=== PATIENT | female | born 1950 | race Caucasian/White ===

== ENCOUNTER → 2017-12-16 | Outpatient (CLI) | payer MEDICARE | LOC: GMAH 11:20 | PROVIDERS: ATTEND Family Medicine | DX: I10 Essential (primary) hypertension (principal); E11.9 Type 2 diabetes mellitus without complications; E78.2 Mixed hyperlipidemia ==

== ENCOUNTER → 2020-01-03 | Outpatient (CLI) | payer MEDICARE | LOC: GMA MATASK 12:21 | PROVIDERS: ATTEND Family Medicine | DX: I10 Essential (primary) hypertension (principal); E11.9 Type 2 diabetes mellitus without complications; M10.9 Gout, unspecified; E78.2 Mixed hyperlipidemia ==

== ENCOUNTER 2020-02-19 09:11 | Emergency (ER) | payer MEDICARE ==
--- NOTE | 2020-02-19 09:23 | ED.PDOC ---
History of Present Illness - General Time Seen by Provider: 02/19/20 09:21 Source: patient - History of Present Illness Initial Comments: 70 yo female with PMH of HTN, vertigo who presents with cc of intermittent chills and headache. Reports onset of illness 2 days ago with gradual worsening. She has not yet been seen for these issues. Reports chills are coming and going intermittently throughout the day, lasting for several minutes. Reports headache is located to the front of the head, constant, dull, 5/10 severity, took Tylenol 650 mg by mouth this morning with little relief. No reported exacerbating factors. She does report also symptoms of nasal congestion and rhinorrhea, intermittent productive cough, scratchy throat, mild epigastric discomfort, nausea without emesis, and one episode of watery diarrhea 2 days ago but none since then. Reports she has been drinking fluids well but has not had much appetite for solid foods. No known recent sick contacts or COVID contacts. No recent travel. Denies any chest pain, dyspnea, urinary symptoms, leg swelling. Her PCP is Dr. Lilly. Allergies/Adverse Reactions: Allergies NO KNOWN ALLERGY Allergy (Verified 02/19/20 09:31) Home Medications: Ambulatory Orders Allopurinol [Zyloprim] 100 mg PO DAILY 02/19/20 Metformin HCl [Metformin Hydrochloride E] 500 mg PO DAILY 02/19/20 Metoprolol Tartrate 25 mg PO DAILY 02/19/20 Olmesartan Medoxomil 40 mg PO DAILY 02/19/20 Ondansetron HCl [Zofran] 8 mg PO Q8H PRN 5 Days #10 tab 02/19/20 Simvastatin 20 mg PO DAILY 02/19/20 Review of Systems - Review of Systems Review of Systems: 02/19/20 09:39 As per HPI All other Systems: Reviewed and Negative Past Medical History (General) - Patient Medical History Hx Seizures: No Hx Stroke: No Hx Dementia: No Hx Asthma: No Hx of COPD: No Hx Cardiac Disorders: No Hx Congestive Heart Failure: No Hx Pacemaker: No Hx Hypertension: Yes Hx Thyroid Disease: No Hx Diabetes: No Hx Gastroesophageal Reflux: No Hx Renal Disease: No Hx Cancer: No Hx of HIV: No Hx Hepatitis C: No Hx MRSA: No - Social History Hx Tobacco Use: Yes Hx Alcohol Use: No Hx Substance Use: No Hx Substance Use Treatment: No Hx Depression: No Family Medical History - Family History Mother Family History: Unknown Physical Exam - Physical Exam General Appearance: Alert, Comfortable, No apparent distress Eye Exam: bilateral normal Ears, Nose, Throat: hearing grossly normal, pharyngeal erythema - Mild without tonsillar swelling or exudate Neck: non-tender, full range of motion, supple, normal inspection Respiratory: lungs clear, normal breath sounds, no respiratory distress, no accessory muscle use Cardiovascular/Chest: normal peripheral pulses, regular rate, rhythm, no edema, no gallop, no JVD, no murmur Peripheral Pulses: radial,right: 2+, radial,left: 2+ Gastrointestinal/Abdominal: non tender, soft, no organomegaly Back Exam: normal inspection, no CVA tenderness, no vertebral tenderness Extremity: normal range of motion, non-tender, normal inspection, no pedal edema, no calf tenderness, normal capillary refill Neurologic: inspector balance wheel motion II-XII nml as tested, no motor/sensory deficits, alert, normal mood/affect, oriented x 3 Skin Exam: normal color, warm/dry Progress - Progress Progress: 02/19/20 09:41 Fl[place]ike illness -Consider viral URI, COVID-19, pneumonia, flu, strep, gastroenteritis/colitis, diverticulitis, UTI, gastritis, cholecystitis, other -Consider also hypertensive urgency, ACS -Blood pressure 189/82 on arrival, vitals otherwise within normal limits, afebrile -Obtain blood work, cardiac work-up, UA, strep and respiratory panel -Place PIV, Zofran 4 mg IV, consider IV antihypertensives if blood pressure remains markedly elevated. 02/19/20 10:49 -Patient remains stable, blood pressure now improved to 140s/80s, remainder of vitals within normal limits. -Labs reveal hypoosmotic hyponatremia with Na 127, likely secondary to hypovolemia/dehydration. Serum WBC is at the upper limits of normal at 10,900 without left shift or bandemia. Troponin level is normal. Remainder of lab work largely unremarkable. Still pending COVID-19 test. Will continue to monitor in the ED. Will discuss with the on-call hospitalist for possible admission versus close outpatient follow-up as a very limited number of hospital beds are currently available. 02/19/20 12:50 -UA finally resulted and appears largely unremarkable. Patient remained stable. I discussed with her the option for possible admission given her hyponatremia versus discharge to home and close outpatient follow-up. She opts to try to go home with continued supportive care and treatment. I advised for her to follow- up in the next couple of days with her PCP for repeat serum sodium level check. She verbalizes her understanding. Will send home with as needed prescription of Zofran. Her COVID-19 testing is negative. I did advise her to continue to self quarantine for 2 weeks to be on the safe side. -Discharged home in good condition, return warnings discussed at length. Antwan Pitt MD Billing #[id number] 02/19/20 09:35 EKG Assessment ONCE 02/19/20 09:42 RESPIRATORY PANEL 2 Stat STREP A SCREEN CULTURE Stat 02/19/20 09:45 EKG STAT 02/20/20 09:00 Pulse Ox Daily Laboratory Results - last 24 hr 02/19/20 02/19/20 02/19/20 09:42 09:50 09:50 WBC 10.9 H RBC 4.52 Hgb 13.9 Hct 40.1 MCV 88.6 MCH 30.8 MCHC 34.7 RDW 13.6 Plt Count 225 MPV 10.1 Absolute Neuts (auto) 7.40 H Absolute Lymphs (auto) 2.50 Absolute Monos (auto) 0.70 Absolute Eos (auto) 0.10 Absolute Basos (auto) 0.10 Neutrophils % 68.0 Lymphocytes % 23.2 Monocytes % 6.5 Eosinophils % 1.3 Basophils % 1.0 Sodium Potassium Chloride Carbon Dioxide Anion Gap BUN Creatinine BUN/Creatinine Ratio Random Glucose Serum Osmolality Calcium Troponin I B-Natriuretic Peptide 65.1 Lipase Urine Color Urine Appearance Urine pH Ur Specific [place] Urine Protein Urine Glucose (UA) Urine Ketones Urine Blood Urine Nitrite Urine Bilirubin Urine Urobilinogen Ur Leukocyte Esterase Urine RBC Urine WBC Ur Epithelial Cells Amorphous Sediment Urine Bacteria Group A Strep Rapid Negative 02/19/20 02/19/20 02/19/20 09:50 09:50 09:50 WBC RBC Hgb Hct MCV MCH MCHC RDW Plt Count MPV Absolute Neuts (auto) Absolute Lymphs (auto) Absolute Monos (auto) Absolute Eos (auto) Absolute Basos (auto) Neutrophils % Lymphocytes % Monocytes % Eosinophils % Basophils % Sodium 127 L Potassium 4.4 Chloride 90 L Carbon Dioxide 24 Anion Gap 17.4 BUN 13 Creatinine 0.66 BUN/Creatinine Ratio 19.7 Random Glucose 112 H Serum Osmolality 256.1 L Calcium 9.6 Troponin I < 0.02 B-Natriuretic Peptide Lipase 29 Urine Color Urine Appearance Urine pH Ur Specific [place] Urine Protein Urine Glucose (UA) Urine Ketones Urine Blood Urine Nitrite Urine Bilirubin Urine Urobilinogen Ur Leukocyte Esterase Urine RBC Urine WBC Ur Epithelial Cells Amorphous Sediment Urine Bacteria Group A Strep Rapid 02/19/20 12:13 WBC RBC Hgb Hct MCV MCH MCHC RDW Plt Count MPV Absolute Neuts (auto) Absolute Lymphs (auto) Absolute Monos (auto) Absolute Eos (auto) Absolute Basos (auto) Neutrophils % Lymphocytes % Monocytes % Eosinophils % Basophils % Sodium Potassium Chloride Carbon Dioxide Anion Gap BUN Creatinine BUN/Creatinine Ratio Random Glucose Serum Osmolality Calcium Troponin I B-Natriuretic Peptide Lipase Urine Color Yellow Urine Appearance Clear Urine pH 5.5 Ur Specific [place] 1.010 Urine Protein Negative Urine Glucose (UA) Negative Urine Ketones Negative Urine Blood Negative Urine Nitrite Negative Urine Bilirubin Negative Urine Urobilinogen 0.2 Ur Leukocyte Esterase Negative Urine RBC 0 Urine WBC 0 Ur Epithelial Cells 3-5 Amorphous Sediment 1+ Urine Bacteria 0 Group A Strep Rapid - EKG/XRAY/CT EKG: Sinus - Normal sinus rhythm, heart rate 65, no ST elevations or Q waves noted, axis normal, intervals normal, compared to 04/22/2014 EKG appears unchanged. XRAY: chest - No acute processes per my read Departure - Departure Clinical Impression: Upper respiratory infection, viral, Hyponatremia, Dehydration Time of Disposition: 12:46 Disposition: Discharge to Home or Self Care Condition: Fair Instructions: Dehydration, Adult (DC), Viral Upper Respiratory Infection, Adult (DC) Diet: resume usual diet Activity: increase activity as tolerated Referrals: Pancho Fung MD [Primary Care Provider] - 1-5 Days Prescriptions: Ondansetron HCl [Zofran] 8 mg PO Q8H PRN 5 Days #10 tab PRN Reason: Nausea Home Medications: Ambulatory Orders Allopurinol [Zyloprim] 100 mg PO DAILY 02/19/20 Metformin HCl [Metformin Hydrochloride E] 500 mg PO DAILY 02/19/20 Metoprolol Tartrate 25 mg PO DAILY 02/19/20 Olmesartan Medoxomil 40 mg PO DAILY 02/19/20 Ondansetron HCl [Zofran] 8 mg PO Q8H PRN 5 Days #10 tab 02/19/20 Simvastatin 20 mg PO DAILY 02/19/20 Additional Instructions: Remain well-hydrated and advance your diet and activity level as tolerated. You may continue to take Tylenol and ibuprofen as needed for pain or fevers. You may take the Zofran as directed as needed for nausea. I would advise that you continue to self quarantine for at least 2 weeks since the initial onset of symptoms. Wash your hands regularly. Follow-up with Dr. Lilly in the next 1 to 2 days as advised for repeat blood check of your serum sodium level which was found to be slightly low during this ED visit. Return to the ED if you develop any worsening or new concerning symptoms such as chest pain, shortness of breath, abdominal pain, confusion, weakness, numbness, seizures, etc.
[2020-02-19] MEDS: ONDANSETRON INJ 4 MG/2 ML VIAL IV ONE (09:47)
--- NOTE | 2020-02-19 09:58 | RAD ---
EXAM: Chest,1 View CLINICAL INDICATION: Cough COMPARISON: There is no previous study for comparison. FINDINGS: A single view of the chest was obtained. The heart size is normal. The pulmonary vascularity is unremarkable. The lungs are clear. There is no consolidation, infiltrate, pleural effusion, or pneumothorax. IMPRESSION: No evidence of active pulmonary disease. Electronically signed by: Gilbert Gaytan MD 02/19/2020 9:56 AM CDT
[2020-02-19] MEDS: SODIUM CHLORIDE 0.9% 1000ML 1,000 ML IVS ONE (10:28)
[2020-02-19 18:54] VITALS: O2SAT 97
[2020-02-19 18:58] VITALS: BP 160/63; TEMP 97.4
== END 2020-02-19 13:18 | disposition home or self-care (01) ==
LOC: ER 09:11
DX: J06.9 Acute upper respiratory infection, unspecified (principal); E87.1 Hypo-osmolality and hyponatremia; E86.0 Dehydration; R51 Headache; I10 Essential (primary) hypertension; Z87.891 Personal history of nicotine dependence; Z79.84 Long term (current) use of oral hypoglycemic drugs; Z79.899 Other long term (current) drug therapy
CPT/HCPCS: 71045; 80048; 81001; 83690; 83880; 84484; 85025; 87070; 87635; 87880; 93005; J2405; J7030

== ENCOUNTER 2020-04-24 17:02 | Emergency (ER) | payer MEDICARE ==
[2020-04-24] MEDS ORDERED: IBUPROFEN 200 MG TAB PO ONE (17:32)
[2020-04-24] MEDS ORDERED: traMADol HCL 50 MG TAB PO ONE (17:32)
[2020-04-24 17:43] VITALS: O2SAT 98
--- NOTE | 2020-04-24 19:39 | ED.PDOC ---
History of Present Illness - General Chief Complaint: Headache Stated Complaint: Headache, dizzyness, hypertension Time Seen by Provider: 04/24/20 17:12 Source: patient Exam Limitations: no limitations - History of Present Illness Initial Comments: The patient is a 70-year-old female presented emergency room secondary to headache and some elevated blood pressure today. The patient does have some chronic hypertension which she and her primary care doctor have been adjusting on recently. No fever. No runny nose or sore throat. No shortness of breath. No palpitations. No chest pain. She does have some chronic dizziness related to episodes of vertigo which is bothering her somewhat. No syncope or near syncope. No focal neurological changes otherwise. She is pleasant and cooperative. She reports systolic blood pressures normally run in the 140s to 160s. Upon arrival here systolic blood pressures are in the 180s. The patient woke up with a headache this morning. It is moderate in nature. It is not focal. It is circumferential. Timing/Duration: 4-6 hours Severity: mild Improving Factors: nothing Worsening Factors: nothing Associated Symptoms: headaches Allergies/Adverse Reactions: Allergies NO KNOWN ALLERGY Allergy (Verified 04/24/20 17:35) Home Medications: Ambulatory Orders Allopurinol [Zyloprim] 100 mg PO DAILY 02/19/20 Metformin HCl [Metformin Hydrochloride E] 500 mg PO DAILY 02/19/20 Metoprolol Tartrate 25 mg PO DAILY 02/19/20 Olmesartan Medoxomil 40 mg PO DAILY 02/19/20 Ondansetron HCl [Zofran] 8 mg PO Q8H PRN 5 Days #10 tab 02/19/20 Simvastatin 20 mg PO DAILY 02/19/20 Review of Systems - Review of Systems Constitutional: States: malaise EENTM: States: no symptoms reported Respiratory: States: no symptoms reported Cardiology: States: no symptoms reported Gastrointestinal/Abdominal: States: no symptoms reported Genitourinary: States: no symptoms reported Musculoskeletal: States: no symptoms reported Skin: States: no symptoms reported Neurological: States: headache Endocrine: States: no symptoms reported Hematologic/Lymphatic: States: no symptoms reported All other Systems: No Change from Baseline Past Medical History (General) - Patient Medical History Hx Seizures: No Hx Stroke: No Hx Dementia: No Hx Asthma: No Hx of COPD: No Hx Cardiac Disorders: No Hx Congestive Heart Failure: No Hx Pacemaker: No Hx Hypertension: Yes Hx Thyroid Disease: No Hx Diabetes: No Hx Gastroesophageal Reflux: No Hx Renal Disease: No Hx Cancer: No Hx of HIV: No Hx Hepatitis C: No Hx MRSA: No - Vaccination History Hx Tetanus, Diphtheria Vaccination: No Hx Influenza Vaccination: Yes Hx Pneumococcal Vaccination: Yes - Social History Hx Tobacco Use: Yes Hx Alcohol Use: No Hx Substance Use: No Hx Substance Use Treatment: No Hx Depression: No - Female History Patient : No Family Medical History - Family History Mother Family History: Unknown Physical Exam - Physical Exam General Appearance: Alert, Comfortable, No apparent distress Eye Exam: bilateral normal Ears, Nose, Throat: hearing grossly normal, normal pharynx Neck: full range of motion, supple Respiratory: lungs clear, normal breath sounds, no respiratory distress, no accessory muscle use Cardiovascular/Chest: normal peripheral pulses, regular rate, rhythm, no edema Peripheral Pulses: radial,right: 2+, radial,left: 2+, dorsalis pedis,right: 2+, dorsalis pedis,left: 2+ Gastrointestinal/Abdominal: non tender, soft Rectal Exam: deferred Back Exam: normal inspection, no CVA tenderness Extremity: normal range of motion, non-tender, normal inspection, no pedal edema, normal capillary refill Neurologic: space controller II-XII nml as tested, alert, normal mood/affect, oriented x 3 Skin Exam: normal color Comments: Vital Signs - 24 hr 04/24/20 04/24/20 17:28 17:36 Temperature 96.7 F L Pulse Rate [ 70 72 Pulse Ox] Respiratory 20 20 Rate Blood Pressure 185/82 [Left Arm] O2 Sat by Pulse 98 Oximetry Repeat blood pressures have fallen down into the 140s over 70s. Progress - Progress Progress: 04/24/20 19:41 The patient is a 70-year-old female presented emergency room secondary to a headache with an elevated blood pressure. The patient received medications to help with the headache and the blood pressure subsequently decreased. This is likely reactive hypertension. The patient does have mild hyponatremia, hypokalemia and hypomagnesemia. This may be related to the hydrochlorothiazide that she is taking. I do want her to discuss with her primary care doctor whether this may be doing her more harm than good in light of the mild electrolyte issues. Certainly these may be contributing to headaches. She does need to keep her self well-hydrated. I do want her to follow back up with her primary care doctor later in the week. ER warnings are given for any overt worsening. No additional blood pressure medications have been given. [email or web address] - Results/Orders Results/Orders: Laboratory Tests 04/24/20 04/24/20 04/24/20 17:47 17:47 18:27 WBC 11.0 H RBC 4.17 L Hgb 13.1 Hct 37.5 MCV 89.9 MCH 31.5 H MCHC 35.1 RDW 14.1 Plt Count 182 MPV 10.7 H Absolute Neuts (auto) 5.90 Absolute Lymphs (auto) 3.10 Absolute Monos (auto) 1.30 H Absolute Eos (auto) 0.40 Absolute Basos (auto) 0.20 H Neutrophils % 53.9 Lymphocytes % 28.3 Monocytes % 12.0 H Eosinophils % 3.8 Basophils % 2.0 Sodium 130 L Potassium 3.4 L Chloride 92 L Carbon Dioxide 28 Anion Gap 13.4 BUN 13 Creatinine 0.70 BUN/Creatinine Ratio 18.6 Random Glucose 135 H Serum Osmolality 262.9 L Calcium 9.3 Magnesium 1.6 L Total Bilirubin 0.3 AST 22 ALT 23 Alkaline Phosphatase 71 Creatine Kinase 70 CK-MB (CK-2) 1.5 CK-MB (CK-2) % Not Reportable Troponin I < 0.02 B-Natriuretic Peptide 42.7 Serum Total Protein 7.3 Albumin 3.8 Globulin 3.5 Albumin/Globulin Ratio 1.1 TSH 1.61 Urine Color Yellow Urine Appearance Clear Urine pH 5.0 Ur Specific [place] 1.015 Urine Protein Negative Urine Glucose (UA) Negative Urine Ketones Negative Urine Blood Negative Urine Nitrite Negative Urine Bilirubin Negative Urine Urobilinogen 0.2 Ur Leukocyte Esterase Negative Urine RBC 0 Urine WBC 3-5 H Ur Epithelial Cells 5-10 Urine Bacteria Rare Respiratory panel negative. EKG shows normal sinus rhythm at 73 bpm. Normal axis. Possibly a very early right bundle branch block developing. No ST segment or T wave changes indicative of acute ischemia. Normal QT interval. - EKG/XRAY/CT CT Ordered: No CT Interpretation Call Back: No Departure - Departure Clinical Impression: Hyponatremia, Hypokalemia, Tension headache, Reactive hypertension, Hypomagnesemia Disposition: Discharge to Home or Self Care Condition: Fair Departure Forms: ED Discharge - Pt. Copy, Patient Portal Self Enrollment Instructions: DI for Headache, Tension Headache, Hyponatremia (DC) Diet: regular diet Activity: increase activity as tolerated Referrals: Pancho Fung MD [Primary Care Provider] - 1-2 Weeks Home Medications: Ambulatory Orders Allopurinol [Zyloprim] 100 mg PO DAILY 02/19/20 Metformin HCl [Metformin Hydrochloride E] 500 mg PO DAILY 02/19/20 Metoprolol Tartrate 25 mg PO DAILY 02/19/20 Olmesartan Medoxomil 40 mg PO DAILY 02/19/20 Ondansetron HCl [Zofran] 8 mg PO Q8H PRN 5 Days #10 tab 02/19/20 Simvastatin 20 mg PO DAILY 02/19/20 Additional Instructions: The patient is a 70-year-old female presented emergency room secondary to a headache with an elevated blood pressure. The patient received medications to help with the headache and the blood pressure subsequently decreased. This is likely reactive hypertension. The patient does have mild hyponatremia, hypokalemia and hypomagnesemia. This may be related to the hydrochlorothiazide that she is taking. I do want her to discuss with her primary care doctor whether this may be doing her more harm than good in light of the mild electrolyte issues. Certainly these may be contributing to headaches. She does need to keep her self well-hydrated. I do want her to follow back up with her primary care doctor later in the week. ER warnings are given for any overt worsening. No additional blood pressure medications have been given.
[2020-04-24 20:04] VITALS: BP 167/81; TEMP 96.4
== END 2020-04-24 20:00 | disposition home or self-care (01) ==
LOC: ER 17:02
DX: G44.209 Tension-type headache, unspecified, not intractable (principal); E87.1 Hypo-osmolality and hyponatremia; I10 Essential (primary) hypertension; E87.6 Hypokalemia; E83.42 Hypomagnesemia; R42 Dizziness and giddiness; Z20.828 Contact with and (suspected) exposure to other viral communicable diseases; Z79.899 Other long term (current) drug therapy; Z79.84 Long term (current) use of oral hypoglycemic drugs